=== PATIENT | female | born 1945 | race Caucasian/White ===

== ENCOUNTER 2017-11-23 08:29 | Day surgery (SDC) | payer MEDICARE ==
--- NOTE | 2017-11-16 21:48 | HP ---
PREOPERATIVE HISTORY AND PHYSICAL: DATE OF SURGERY/ADMISSION: 11/23/17 [facility] DATE OF OFFICE VISIT/ENCOUNTER: 11/14/17 ATTENDING SURGEON: Bonita Quiroga MD * (DICTATED BY ABHI HO) PROCEDURE: Excision of cyst, left hand. CHIEF COMPLAINT: Cysts on left long finger. HISTORY OF PRESENT ILLNESS: This is a 72-year-old female, who complaints of a mass on the dorsal aspect of her left middle finger metacarpophalangeal joint. It has been present for approximately 6 weeks. It has become increasingly bothersome and has grown in size a bit. She would like to have it removed. She does not recall any injury. It is not affected the range of motion of her fingers. It is painful if she bumps it up against anything. She has consented to proceed with surgical excision of the mass. The patient has ongoing intermittent back pain and takes Tylenol No. 3 p.r.n. PAST MEDICAL HISTORY: 1. Intermittent back pain. 2. Anxiety. 3. History of questionable lupus versus fibromyalgia. 4. Hypertension. 5. Irritable bowel syndrome. PAST SURGICAL HISTORY: 1. Spinal fusion. 2. Laminectomy. 3. Right hand surgery x5. 4. Left carpal tunnel release. 5. Hysterectomy. 6. Cholecystectomy. 7. ORIF, left ankle and subsequent removal of hardware. 8. Eyelid surgery. 9. Tonsillectomy and adenoidectomy. CURRENT MEDICATIONS: 1. Aleve 220 mg daily. 2. Benadryl 25 mg 1 to 2 tabs 3 times a day p.r.n. 3. Benicar/HCT 20/12.5 mg daily. 4. Biotin 7500 mcg daily. 5. Calcium/magnesium 300/300 mg daily. 6. Ibuprofen 800 mg b.i.d. p.r.n. 7. Multivitamin daily. 8. Neurontin 300 mg daily at bedtime. 9. Neurontin 100 mg 2 capsules daily in the morning. 10. Neurontin 100 mg 1 to 3 p.o. q.h.s. 11. Potassium/calcium 1 daily. 12. Prednisone 5 mg daily. 13. Prilosec 20 mg daily. 14. Soma 250 mg daily. 15. Tylenol With Codeine No. 3, 300-30 mg 1 tab q.4 to 6 hours p.r.n. 16. Vitamin B12 q.4 to 6 weeks. 17. Xanax 0.25 mg 1 daily p.r.n. anxiety. ALLERGIES: No known drug allergies. FAMILY MEDICAL HISTORY: Diabetes and cancer. SOCIAL HISTORY: The patient is a retired nurse. 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 She is a former smoker, she quit in 1993, prior to that she was up to 3 packs per day for 28 years. She denies recreational drug use. She does drink alcohol on a regular occasion, approximately 2 glasses of wine daily. REVIEW OF SYSTEMS: General: Positive for night sweats and weight gain. Negative for fevers or chills, no known anesthesia problems in the past. HEENT : Negative for headache, lightheadedness, syncopal episodes, or visual changes. Integumentary: Negative for abrasions, lesions, open wounds. Cardiothoracic: Negative for hypertension, chest pain, palpitations, edema. Respiratory: Negative for shortness of breath with exertion, chronic cough, wheezing. GI: Negative for nausea, vomiting, diarrhea, constipation, GERD. : Negative for nocturia, urinary frequency, urgency, history of UTIs, kidney problems. Musculoskeletal: Positive for current complaint. Negative for chronic or intermittent back pain, or history of fractures. Neurological: Positive for anxiety. Negative for paresthesias, numbness, history of seizure, stroke, or poor balance. Endocrine: Negative for diabetes and thyroid issues. Hematologic: Positive for easy bruising. Negative for anemia, bleeding disorders or history of DVT. Infectious Disease: Negative for history of MRSA , hepatitis C, HIV. PHYSICAL EXAMINATION GENERAL: Well-developed, well-nourished 72-year-old female, in no acute distress. VITAL SIGNS: Height 5 feet tall, weight 161 pounds. Blood pressure 128/72, pulse rate 78. HEENT: Normocephalic, atraumatic. Pupils are equal, round and reactive to light and accommodation. Extraocular movements are intact. Throat is clear. NECK: Supple. No palpable lymph nodes. PULMONARY: Lungs are clear to auscultation bilaterally. No wheezes, rales, or rhonchi. CARDIOVASCULAR: Regular rate and rhythm. S1, S2. No murmurs, rubs, or gallops. ABDOMEN: Positive bowel sounds, soft, nontender. NEUROLOGICAL: Alert and oriented x3. Cranial nerves II through XII are intact. Sensation is intact to light touch. MUSCULOSKELETAL: On exam of her left hand, there is a small mass present at the ulnar-dorsal aspect of the MTP joint. It is tender to palpation. She has full range of motion of the finger with flexion and extension. Skin is intact. Neurovascular function is intact. IMAGING STUDIES: X-rays of the left hand AP, lateral, and oblique show no fracture, no bony abnormalities, no sign of a foreign body. IMPRESSION: Soft tissue mass, left hand. PLAN: The patient is scheduled to undergo an excision of cyst left hand with Dr. Quiroga on 11/23/17. She will return to the office 10 days postop for followup and suture removal. She has Tylenol No. 3 at home that she will plan on using for postoperative pain management. ABHI HO [id number]/[facility] #: [id number] JOÃO
[~2017-11-23 08:29] MED LIST: Buffered Lidocaine 0.9% SYRIN* 5 ML/SYR SYRINGE INTRADERM ONE
[2017-11-23] MEDS ORDERED: Lidocaine 1%* 5 ML VIAL ONE (09:56)
[2017-11-23] MEDS ORDERED: Midazolam* 1 MG/ML 2 ML VIAL (2 MG) ONE ×2 (10:17→10:19)
[2017-11-23] MEDS ORDERED: fentaNYL* 50 MCG/ML 2 ML VIAL (100 MCG VIAL) ONE (10:17)
[2017-11-23] MEDS ORDERED: Naloxone* 0.4 MG/ML 1 ML VIAL IV PRN (10:33)
[2017-11-23] MEDS ORDERED: Propofol* 10 MG/ML 20 ML BTL IV PUSH ONE (10:35)
[2017-11-23 11:21] VITALS: BP 137/76
--- NOTE | 2017-11-23 22:28 | OP ---
DATE OF OPERATION: 11/23/17 [facility] DATE OF : 47 SURGEON: Bonita Quiroga MD STEMHOLE BORER: ABHI Alvarez ANESTHESIA: Local MAC. PRE-OP DIAGNOSIS: Left hand mass. POST-OP DIAGNOSIS: Left hand mass. OPERATIVE PROCEDURE: Removal of left hand mass. ESTIMATED BLOOD LOSS: Zero. TOURNIQUET TIME: About 10 minutes. INDICATIONS FOR PROCEDURE: is a 72-year-old woman who has a painful mass on the dorsal aspect of her left hand at the middle finger MP joint. She presents for removal. DESCRIPTION OF PROCEDURE: The patient was brought to operating room, was given a sedation anesthetic and a local infiltration with 10 cc of 1% plain lidocaine overlying the left hand mass. The skin of her left hand and forearm was prepped and draped in the usual sterile fashion. The hand and forearm were exsanguinated and a tourniquet elevated to 250 mmHg. A longitudinal incision was made centered over the mass. We dissected bluntly through the subcutaneous tissue. There was a ganglion cyst emanating from the extensor velasquez. It was removed with a small portion of the extensor velasquez and sent for pathology. The edges of excisions were cauterized with the Bovie. The wound was irrigated and skin edges were reapproximated with 4-0 nylon sutures. The wound was dressed with Xeroform, 4x4, Webril and Coban. The patient tolerated the procedure well and was brought to the recovery room in good condition. [id number]/[facility] #: [id number] MTDD
== END 2017-11-23 11:10 | disposition home or self-care (01) ==
LOC: OREAST 08:29
PROVIDERS: ATTEND Orthopaedic Surgery
DX: M67.442 Ganglion, left hand (principal); I10 Essential (primary) hypertension; K21.9 Gastro-esophageal reflux disease without esophagitis; M19.90 Unspecified osteoarthritis, unspecified site; F41.9 Anxiety disorder, unspecified
CPT/HCPCS: 88304; J2250; J2704; J3010

== ENCOUNTER 2019-06-02 08:42 | Day surgery (SDC) | payer MEDICARE ==
[~2019-06-02 08:42] MED LIST changes: -Buffered Lidocaine 0.9% SYRIN* 5 ML/SYR SYRINGE INTRADERM ONE; +Buffered Lidocaine 1% SYRIN* 1 ML/SYRINGE INTRADERM ONE; +Lactated Ringers 1000 ML Bag* 1,000 ML IV SCH
[2019-06-02] MEDS ORDERED: Scopolamine 1.5 mg* PATCH ONE (09:10)
[2019-06-02] MEDS ORDERED: ceFAZolin 2 GM in NS PREMIX(*) 2 GM/100 ML BAG IVPB ONE (09:11)
[2019-06-02] MEDS ORDERED: Buffered Lidocaine 1% SYRIN* 1 ML/SYRINGE INTRADERM ONE (09:11)
[2019-06-02] MEDS ORDERED: Scopolamine 1.5 mg* PATCH TRANSDERM ONE (09:14)
[2019-06-02] MEDS: Lactated Ringers 1000 ML Bag* 1,000 ML IV SCH ×2 (09:22→09:46)
[2019-06-02] MEDS ORDERED: Midazolam* 1 MG/ML 2 ML VIAL (2 MG) ONE (09:31)
[2019-06-02] MEDS ORDERED: Propofol* 10 MG/ML 20 ML BTL ONE (09:47)
[2019-06-02] MEDS ORDERED: Lidocaine 2% PF * 5 ML VIAL ONE (09:47)
[2019-06-02] MEDS ORDERED: EPINEPHRINE 1 MG/ML 1 ML VIAL ONE ×2 (10:58→11:58)
[2019-06-02] MEDS ORDERED: Lidocaine 1% INJ* 10 MG/ML 30 ML SDV ONE (10:59)
[2019-06-02] MEDS ORDERED: Dexamethasone IV* 4 MG/ML 5 ML VIAL (20 MG) ONE (10:59)
[2019-06-02] MEDS ORDERED: Bupivacaine 0.25% EPI 200,000* 30 ML SDV ONE (10:59)
[2019-06-02] MEDS ORDERED: fentaNYL* 50 MCG/ML 2 ML VIAL (100 MCG VIAL) ONE (11:39)
[2019-06-02] MEDS ORDERED: Succinylcholine* 20 MG/ML 10 ML VIAL ONE (11:55)
[2019-06-02] MEDS ORDERED: Naloxone* 0.4 MG/ML 1 ML VIAL IV PRN (12:08)
[2019-06-02] MEDS ORDERED: fentaNYL* 50 MCG/ML 2 ML VIAL (100 MCG VIAL) IV PRN (12:08)
[2019-06-02] MEDS ORDERED: oxyCODONE TAB* 5 MG TAB PO PRN (12:08)
[2019-06-02] MEDS ORDERED: DiMENhydriNATE IV* 50 MG/ML VIAL IV PUSH PRN (12:08)
[2019-06-02] MEDS ORDERED: Dexamethasone IV* 4 MG/ML 1 ML (4 MG) ONE ×2 (12:11→12:16)
[2019-06-02] MEDS ORDERED: EPHEDrine (Pressors)* 50 MG/ML VIAL ONE (12:11)
[2019-06-02] MEDS ORDERED: Phenylephrine 40 MCG/ML SYRINGE ONE (12:14)
[2019-06-02] MEDS ORDERED: Metoclopramide IV* 5 MG/ML 2 ML VIAL ONE (12:21)
[2019-06-02] MEDS ORDERED: Ketorolac INJ* 30 MG/ML 1 ML VIAL ONE (12:21)
[2019-06-02] MEDS ORDERED: Ondansetron INJ* 2 MG/ML VIAL ONE (12:21)
[2019-06-02 14:25] VITALS: BP 127/79
--- NOTE | 2019-06-02 19:54 | OP ---
DATE OF OPERATION: 06/02/19 - [facility] DATE OF : 47 ATTENDING SURGEON: Gilmar Ruggiero MD ROPING TENDER: Margarita Cabrera RPA ANESTHESIA: General endotracheal. PRE-OP DIAGNOSIS: Chondrocalcinosis, left knee. POST-OP DIAGNOSES: 1. Chondrocalcinosis, left knee. 2. Medial meniscus tear. OPERATIVE PROCEDURE: 1. Left knee arthroscopy. 2. Partial medial meniscectomy. 3. Debridement. ESTIMATED BLOOD LOSS: Negligible. COMPLICATIONS: None. SUMMARY: Ms. Arango is a 73-year-old female who has been having troubles with left knee pain for some time. She had been treated conservatively with physical therapy and injections but still had very specific complaints of pain. I discussed with her considering the changes she had within the knee that a knee replacement would be something that would predictably give her long-term relief. She reports though she is not ready for that and was wondering if something such as any knee arthroscopy could be helpful. I discussed with her that with the chondrocalcinosis, sometimes it can as we have been able in other people to relieve the knee if some of the crystal load and this was helped them and even allowed them to continue to work. Risks of surgery such as infection, scar formation, stiffness, DVT, pulmonary embolism, and very specifically she would have continued pain were discussed and she had wished to proceed. DESCRIPTION OF PROCEDURE: The patient was brought to the OR and initially an LMA was placed. As we were going to start, this was found to be leaking and general endotracheal anesthesia was established. Left knee was prepped and then draped. Portal sites were preinjected using 0.25% Marcaine with epinephrine and a standard lateral portal was made first using an #11 blade. Blunt trocar with the sheath was easily introduced into the knee and a camera was introduced into the sheath. The knee was allowed to insufflate and pulling back, it could be seen that she had some very specific chondrocalcinosis. Pictures were taken. Dropping down the medial gutter, no loose bodies were seen and medial compartment was entered. Under direct vision, the medial portal was made and probe was introduced. It could be seen that she had a very specific medial meniscus tear. Shaver was used to gently debride this and she had some very specific loss of cartilage underneath the posterior rim of her meniscus. Pictures were taken of this as well. Moving to the notch, she had flounce of cartilage with hanging chondrocalcinosis and all of this was debrided using a shaver. Certainly coming to the lateral compartment, that synovium overflowed the lateral femoral condyle from the notch into the lateral compartment and again shaver was used to debride this and decrease the synovial and crystal load. Shaver was then used to gently debride the lateral meniscus, but she did not have a specific tear. Coming back up, synovium in the pouch was also debrided wherever she had the small crystal deposits. Second look revealed no additional pathology. All instrumentation was removed. Portal sites were closed using 4-0 nylon sutures. The knee was injected with a total of 30 cc of 0.25% Marcaine with epinephrine and 12 mg of dexamethasone. Sterile dressing and a Cryo/Cuff were applied in the OR. The patient was then extubated in the OR and stable on transfer to the recovery room. DISPOSITION/DISCHARGE SUMMARY: Ms. Arango is a 73-year-old female, who just underwent a left knee arthroscopy. She tolerated the procedure well with no complications. She is currently rolling towards the recovery room. When she can tolerate p.o.'s, her pain well controlled, and can void, she will be discharged home. [id number] will be used to get her [place] before she goes. She has instructions to keep her dressing clean, dry, and intact for the next 2 days, but after that, may take her dressing down, cover her sutures with bandage , may shower, wash and get it wet but should not soak it. I would like to see her in the office in approximately 10 days to remove her sutures and make sure she is doing well. If there are any problems or if anything odd should occur, the instructions are to give the office a call. [id number]/[facility] #: [id number] JOÃO
[2019-06-05] MEDS ORDERED: Scopolamine PATCH Remove* 1 NOTE MISC PATCH OFF ONE (06:00)
== END 2019-06-02 14:35 | disposition home or self-care (01) ==
LOC: OR 08:42
PROVIDERS: ATTEND Orthopaedic Surgery
DX: M11.262 Other chondrocalcinosis, left knee (principal); M23.204 Derangement of unspecified medial meniscus due to old tear or injury, left knee; M17.12 Unilateral primary osteoarthritis, left knee; Z87.891 Personal history of nicotine dependence; I45.10 Unspecified right bundle-branch block; I10 Essential (primary) hypertension; M79.7 Fibromyalgia; R20.2 Paresthesia of skin; F41.8 Other specified anxiety disorders; K58.9 Irritable bowel syndrome, unspecified
CPT/HCPCS: A9270-GY; J0330; J0690; J1100; J1885; J2250; J2405; J2704; J2765; J3010